=== PATIENT | male | born 1995 | race Two or more races ===

== ENCOUNTER 2021-08-10 15:05 | Emergency (ER) | payer OTHER ==
[~2021-08-10] VITALS: Ht 170.2 cm; Wt 65.9 kg
[2021-08-10 15:38] VITALS: BP 138/67
[2021-08-10 16:00] LABS: COVID AG,FIA SOURCE NASAL SWAB
[2021-08-10 16:20] LABS: INFLUENZA TYPE A NEGATIVE FOR TYPE A (NEGATIVE); INFLUENZA TYPE B NEGATIVE FOR TYPE B (NEGATIVE)
== END 2021-08-10 18:26 | disposition home or self-care (01) ==
LOC: EMS 15:05
DX: J06.9 Acute upper respiratory infection, unspecified (principal); F12.90 Cannabis use, unspecified, uncomplicated; Z20.822 Contact with and (suspected) exposure to COVID-19
CPT/HCPCS: 87426; 87804; 99283; U0003

== ENCOUNTER 2021-08-12 20:24 | Emergency (ER) | payer OTHER ==
[~2021-08-12] VITALS: Ht 170.2 cm; Wt 65.9 kg
[2021-08-12 21:33] VITALS: BP 97/65
[2021-08-12] MEDS ORDERED: FLUORESCEIN SODIUM 1 MG STRIP ONE (22:23)
[2021-08-12] MEDS ORDERED: PROPARACAINE HCL 0.5% 15 ML OPHTHALMIC SOLUTION OS ONE (22:30)
[2021-08-12] MEDS ORDERED: SULFACETAMIDE SODIUM 10% 15 ML OPHTHALMIC SOLUTION OS ONE (22:45)
[2021-08-12] MEDS ORDERED: NEOMYCIN/BACITRACIN/POLYMYXIN B 3.5 GM OPHTHALMIC OINTMENT OS ONE (22:45)
== END 2021-08-12 23:10 | disposition home or self-care (01) ==
LOC: EMS 20:25
DX: S05.02XA Injury of conjunctiva and corneal abrasion without foreign body, left eye, initial encounter (principal); F12.90 Cannabis use, unspecified, uncomplicated; X58.XXXA Exposure to other specified factors, initial encounter; Y93.89 Activity, other specified; Y92.89 Other specified places as the place of occurrence of the external cause; Y99.8 Other external cause status
CPT/HCPCS: 99284; Z7502; Z7610